=== PATIENT | male | born 1940 | race American Indian/Alaskan Native ===

== ENCOUNTER 2021-03-06 13:15 | Emergency (ER) | payer MEDICARE ==
[2021-03-06] MEDS ORDERED: ACETAMINOPHEN 325 MG TAB PO ONE ×2 (15:43→19:04)
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
--- NOTE | 2021-03-06 16:21 | XRay Report ---
CHEST 2 VIEWS INDICATION / CLINICAL INFORMATION: cough. COMPARISON: None available. FINDINGS: SUPPORT DEVICES: None. HEART / MEDIASTINUM: No significant abnormality. LUNGS / PLEURA: No significant pulmonary or pleural abnormality. No pneumothorax. ADDITIONAL FINDINGS: No significant additional findings. IMPRESSION: 1. No acute findings. Signer Name: Juan Manuel Almeida MD Signed: 03/06/2021 4:16 PM Workstation Name: [id number]
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
[2021-03-06 18:52] VITALS: BP 131/68
== END 2021-03-06 19:10 | disposition home or self-care (01) ==
LOC: ED 13:15
DX: M54.2 Cervicalgia (principal); M54.50 Low back pain, unspecified; J45.909 Unspecified asthma, uncomplicated; V89.2XXA Person injured in unspecified motor-vehicle accident, traffic, initial encounter; Y93.89 Activity, other specified; Y92.89 Other specified places as the place of occurrence of the external cause; Y99.8 Other external cause status
CPT/HCPCS: 70450; 71046; 72100; 72125; 99284